=== PATIENT | female | born 2005 | race Caucasian/White ===

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

== ENCOUNTER → 2025-07-02 13:05 | Outpatient (CLI) | payer OTHER, SELFPAY ==
--- NOTE | 2025-07-02 13:08 | DI.US.S_ITS ---
PROCEDURE: US PELVIC COMPLETE INDICATIONS: ovarian cyst TECHNIQUE: Real-time scanning was performed of the pelvic organs, with image documentation. Additional endovaginal scanning was necessary due to incomplete visualization of the adnexal and endometrial structures by transabdominal scanning. COMPARISON: None. FINDINGS: Uterus: 8.2 x 2.7 x 5.1 cm. Anteverted uterine positioning. The endometrium measures 3 mm, within normal limits. Ovaries: Right ovary is enlarged measuring 22 mL. A simple appearing 3.3 cm cyst is present. No soft tissue nodule identified. Left ovary is nonenlarged, measuring 2 mL. Other: No pathologic free fluid IMPRESSION: Enlarged right ovary measuring 22 mL. A simple appearing 3.3 cm cyst is present. Nonthickened endometrium. Dictated by: Gigi Clifton M.D. on 07/02/2025 at 14:14 Approved by: Gigi Clifton M.D. on 07/02/2025 at 14:16
== END ==
LOC: US 13:07
PROVIDERS: Family Provider Family Medicine; PCP Physician Assistant; Referring Provider Physician Assistant; Visit Provider Physician Assistant
DX: N83.201 Unspecified ovarian cyst, right side (principal); N83.8 Other noninflammatory disorders of ovary, fallopian tube and broad ligament
CPT/HCPCS: 76830; 76856